=== PATIENT | male | born 1950 | race Two or more races ===

== ENCOUNTER 2018-12-08 12:40 | Inpatient (IN) | payer MEDICARE, MEDICAID ==
[2018-12-08] VITALS (8 sets, daily range): BP systolic 115–156; BP diastolic 77–97
[~2018-12-08] VITALS: Ht 165.1 cm; Wt 68.4 kg
[2018-12-08] MEDS ORDERED: HALOPERIDOL 5 MG TABLET PO PRN (13:15)
[2018-12-08] MEDS ORDERED: ZOLPIDEM TARTRATE 10 MG TABLET PO PRN (13:15)
[2018-12-08] MEDS ORDERED: PNEUMOCOCCAL VACCINE POLYVALENT 0.5 ML VIAL [PPSV23] IM ONE (14:00)
[2018-12-08] MEDS: LORazepam 2 MG TABLET PO PRN (20:43)
[2018-12-09] VITALS (11 sets, daily range): BP systolic 129–158; BP diastolic 82–117
[2018-12-09] MEDS: NICOTINE 14 MG/24 HOUR PATCH TD SCH (08:30)
[2018-12-09 08:41] LABS: BASOPHILS % (AUTO) 0.9 % (0.0-2.0); EOSINOPHILS % (AUTO) 1.9 % (1.0-6.0); HEMATOCRIT 44.3 % (41-53); HEMOGLOBIN 15.4 g/dL (13.5-17.5); LYMPHOCYTES # (AUTO) 0.8 K/uL (1.0-4.8); LYMPHOCYTES % (AUTO) 18.8 % (22.0-44.0); MEAN CORPUSCULAR HEMOGLOBIN 32.2 pg (26.0-34.0); MEAN CORPUSCULAR HGB CONC 34.7 G/dL (31.0-37.0); MEAN CORPUSCULAR VOLUME 93 fL (80-100); MONOCYTES # (AUTO) 0.7 K/uL (0.1-1.0); MONOCYTES % (AUTO) 15.6 % (2.0-9.0); NEUTROPHILS # (AUTO) 2.6 K/uL (1.8-7.7); NEUTROPHILS % (AUTO) 62.8 % (40.0-70.0); PLATELET COUNT (AUTO) 250 K/uL (150-450); RED BLOOD CELL COUNT(AUTO) 4.78 MIL/uL (4.50-5.90); RED CELL DISTRIBUTION WIDTH 17.7 % (11.5-14.5)
[2018-12-09 08:50] LABS: HEMOGLOBIN A1C 5.8 % (4.5-6.2)
[2018-12-09 09:13] LABS: ALANINE AMINOTRANSFERASE 59 U/L (12-78); ALBUMIN 3.2 g/dL (3.4-5.0); ALKALINE PHOSPHATASE 60 U/L (46-116); ANION GAP 7 mmol/L (8-16); ASPARTATE AMINOTRANSFERASE 69 U/L (15-37); BILIRUBIN,TOTAL 0.7 mg/dL (0.1-1.0); CALCIUM, TOTAL 8.5 mg/dL (8.8-10.5); CARBON DIOXIDE 29 mmol/L (22-29); CHLORIDE 103 mmol/L (98-107); CHOL/HDL RATIO 1.8 (4.2-7.3); CHOLESTEROL 222 mg/dL (131-200); CREATININE 0.85 mg/dL (0.60-1.30); FREE T4 (FREE THYROXINE) 0.78 ng/dL (0.76-1.46); GLOMERULAR FILTR. RATE CALC > 60 mL/min (>60); GLUCOSE,RANDOM 95 mg/dL (70-110); HDL CHOLESTEROL 124 mg/dL (40-60); LDL CHOL (CALC.) 89 mg/dL (0-130); POTASSIUM 4.1 mmol/L (3.5-5.1); SODIUM SERUM 139 mmol/L (136-145); THYROID STIMULATING HORMONE 1.22 uIU/mL (0.36-3.74); TOTAL PROTEIN, SERUM 6.6 g/dL (6.4-8.2); TRIGLYCERIDES 44 mg/dL (15-150); UREA NITROGEN, BLOOD 12 mg/dL (7-18)
[2018-12-09] MEDS: LORazepam 2 MG TABLET PO PRN (13:05)
[2018-12-09] MEDS: LISINOPRIL 10 MG TABLET PO SCH (14:05)
[2018-12-09] MEDS: HALOPERIDOL 2 MG TABLET PO SCH (21:08)
[2018-12-10 03:15] VITALS: BP 137/81
[2018-12-10] MEDS ORDERED: LOPERAMIDE HCL 2 MG CAPSULE PO PRN (07:30)
[2018-12-10] MEDS ORDERED: MAG HYDROX/AL HYDROX/SIMETH ES 30 ML SUSPENSION UDCUP PO PRN (07:30)
[2018-12-10] MEDS ORDERED: BENZOCAINE/MENTHOL LOZENGE MM PRN (07:30)
[2018-12-10] MEDS ORDERED: ONDANSETRON HCL 4 MG TABLET PO PRN (07:30)
[2018-12-10] MEDS ORDERED: IBUPROFEN 600 MG TABLET PO PRN (07:30)
[2018-12-10] MEDS ORDERED: MAGNESIUM HYDROXIDE SUSPENSION 30 ML UDCUP PO PRN (07:30)
[2018-12-10] MEDS ORDERED: ALBUTEROL SULFATE HFA 90 MCG/PUFF 8 GM INHALER IH PRN (07:30)
[2018-12-10] MEDS ORDERED: BACITRACIN 28.4 GM OINTMENT TP PRN (07:30)
[2018-12-10] MEDS ORDERED: PETROLATUM,WHITE 71 GM JELLY TP PRN (07:30)
[2018-12-10] MEDS ORDERED: CloNIDine HCL 0.1 MG TABLET PO PRN (07:30)
[2018-12-10] MEDS: OMEPRAZOLE 20 MG CAPSULE PO SCH (08:36)
[2018-12-10] MEDS: NICOTINE 14 MG/24 HOUR PATCH TD SCH (08:37)
[2018-12-10] MEDS: LISINOPRIL 10 MG TABLET PO SCH (08:37)
[2018-12-10] MEDS: DOCUSATE SODIUM 100 MG CAPSULE PO SCH (09:35)
[2018-12-10 10:38] VITALS: BP 128/88
[2018-12-10 16:09] VITALS: BP 137/86
[2018-12-10] MEDS: HALOPERIDOL 2 MG TABLET PO SCH (20:04)
[2018-12-11 00:17] VITALS: BP 113/72
[2018-12-11] MEDS: DOCUSATE SODIUM 100 MG CAPSULE PO SCH (08:04)
[2018-12-11] MEDS: NICOTINE 14 MG/24 HOUR PATCH TD SCH (08:04)
[2018-12-11] MEDS: OMEPRAZOLE 20 MG CAPSULE PO SCH (08:04)
[2018-12-11] MEDS: LISINOPRIL 10 MG TABLET PO SCH (08:04)
[2018-12-11 09:01] VITALS: BP 115/80
[2018-12-11 16:11] VITALS: BP 121/95
[2018-12-11] MEDS: HALOPERIDOL 2 MG TABLET PO SCH (20:12)
[2018-12-12 06:10] VITALS: BP 137/87
[2018-12-12 08:16] VITALS: BP 139/88
[2018-12-12] MEDS: DOCUSATE SODIUM 100 MG CAPSULE PO SCH (08:30)
[2018-12-12] MEDS: OMEPRAZOLE 20 MG CAPSULE PO SCH (08:30)
[2018-12-12] MEDS: LISINOPRIL 10 MG TABLET PO SCH (08:30)
[2018-12-12] MEDS: NICOTINE 14 MG/24 HOUR PATCH TD SCH (08:32)
[2018-12-12 16:14] VITALS: BP 140/90
[2018-12-12] MEDS: HALOPERIDOL 2 MG TABLET PO SCH (20:06)
[2018-12-13 00:22] VITALS: BP 140/100
[2018-12-13] MEDS: DOCUSATE SODIUM 100 MG CAPSULE PO SCH (08:11)
[2018-12-13] MEDS: OMEPRAZOLE 20 MG CAPSULE PO SCH (08:11)
[2018-12-13] MEDS: LISINOPRIL 10 MG TABLET PO SCH (08:11)
[2018-12-13] MEDS: NICOTINE 14 MG/24 HOUR PATCH TD SCH (08:11)
[2018-12-13] MEDS ORDERED: NICOTINE 14 MG/24 HOUR PATCH TD PRN (08:30)
[2018-12-13 09:15] VITALS: BP 140/89
[2018-12-13 16:06] VITALS: BP 140/83
[2018-12-13] MEDS: ACETAMINOPHEN 325 MG TABLET PO PRN (16:42)
[2018-12-13] MEDS: HALOPERIDOL 2 MG TABLET PO SCH (20:13)
[2018-12-14 00:42] VITALS: BP 138/90
[2018-12-14] MEDS: OMEPRAZOLE 20 MG CAPSULE PO SCH (08:28)
[2018-12-14] MEDS: LISINOPRIL 10 MG TABLET PO SCH (08:29)
[2018-12-14] MEDS: DOCUSATE SODIUM 100 MG CAPSULE PO SCH (08:29)
[2018-12-14 08:37] VITALS: BP 133/80
[2018-12-14 16:06] VITALS: BP 127/84
[2018-12-14] MEDS: HALOPERIDOL 2 MG TABLET PO SCH (20:31)
[2018-12-15 04:57] VITALS: BP 136/89
[2018-12-15 08:06] VITALS: BP 125/87
[2018-12-15] MEDS: OMEPRAZOLE 20 MG CAPSULE PO SCH (08:18)
[2018-12-15] MEDS: DOCUSATE SODIUM 100 MG CAPSULE PO SCH (08:18)
[2018-12-15] MEDS: LISINOPRIL 10 MG TABLET PO SCH (08:18)
[2018-12-15 16:15] VITALS: BP 142/84
[2018-12-15] MEDS: HALOPERIDOL 2 MG TABLET PO SCH (20:38)
[2018-12-16 05:16] VITALS: BP 103/60
[2018-12-16] MEDS: DOCUSATE SODIUM 100 MG CAPSULE PO SCH (08:05)
[2018-12-16] MEDS: LISINOPRIL 10 MG TABLET PO SCH (08:05)
[2018-12-16] MEDS: THIAMINE HCL 100 MG TABLET PO SCH (08:06)
[2018-12-16] MEDS: FOLIC ACID 1 MG TABLET PO SCH (08:06)
[2018-12-16] MEDS: MULTIVITAMINS WITH MINERALS, THERAPEUTIC TABLET PO SCH (08:06)
[2018-12-16] MEDS: OMEPRAZOLE 20 MG CAPSULE PO SCH (08:06)
[2018-12-16 08:11] VITALS: BP 136/90
[2018-12-16] MEDS ORDERED: MULTIVITAMINS WITH MINERALS, THERAPEUTIC TABLET PO SCH (09:00)
[2018-12-16] MEDS ORDERED: FOLIC ACID 1 MG TABLET PO SCH (09:00)
[2018-12-16 16:04] VITALS: BP 140/84
[2018-12-16] MEDS: HALOPERIDOL 2 MG TABLET PO SCH (20:08)
[2018-12-16 20:38] VITALS: BP 124/71
[2018-12-16] MEDS: ACETAMINOPHEN 325 MG TABLET PO PRN (20:38)
[2018-12-17 00:59] VITALS: BP 136/85
[2018-12-17] MEDS: MULTIVITAMINS WITH MINERALS, THERAPEUTIC TABLET PO SCH (06:39)
[2018-12-17] MEDS: DOCUSATE SODIUM 100 MG CAPSULE PO SCH (08:27)
[2018-12-17] MEDS: LISINOPRIL 10 MG TABLET PO SCH (08:28)
[2018-12-17] MEDS: OMEPRAZOLE 20 MG CAPSULE PO SCH (08:28)
[2018-12-17] MEDS: THIAMINE HCL 100 MG TABLET PO SCH (08:28)
[2018-12-17] MEDS: FOLIC ACID 1 MG TABLET PO SCH (08:28)
[2018-12-17 08:31] VITALS: BP 120/80
[2018-12-17 09:18] LABS: ALBUMIN 3.2 g/dL (3.4-5.0); BILIRUBIN,DIRECT 0.1 mg/dL (0.00-0.20); BILIRUBIN,TOTAL 0.4 mg/dL (0.1-1.0); TOTAL PROTEIN, SERUM 6.9 g/dL (6.4-8.2)
[2018-12-17] MEDS ORDERED: LACTULOSE 20 GM/30 ML SOLUTION UDCUP PO SCH ×2 (16:00→22:30)
[2018-12-17 18:01] VITALS: BP 139/98
[2018-12-17] MEDS: HALOPERIDOL 2 MG TABLET PO SCH (20:07)
[2018-12-18] MEDS: LACTULOSE 20 GM/30 ML SOLUTION UDCUP PO SCH ×3 (00:05→16:47)
[2018-12-18] MEDS: LORazepam 2 MG TABLET PO PRN (00:38)
[2018-12-18 00:39] VITALS: BP_SYST 126; BP_SYST 141; BP_DIAS 78; BP_DIAS 81
[2018-12-18] MEDS: MULTIVITAMINS WITH MINERALS, THERAPEUTIC TABLET PO SCH (06:39)
[2018-12-18] MEDS: FOLIC ACID 1 MG TABLET PO SCH (08:22)
[2018-12-18] MEDS: DOCUSATE SODIUM 100 MG CAPSULE PO SCH (08:22)
[2018-12-18] MEDS: OMEPRAZOLE 20 MG CAPSULE PO SCH (08:22)
[2018-12-18] MEDS: LISINOPRIL 10 MG TABLET PO SCH (08:22)
[2018-12-18] MEDS: THIAMINE HCL 100 MG TABLET PO SCH (08:22)
[2018-12-18 08:34] VITALS: BP 131/92
[2018-12-18] MEDS ORDERED: LACTULOSE 20 GM/30 ML SOLUTION UDCUP PO SCH (09:00)
[2018-12-18 16:10] VITALS: BP 140/94
[2018-12-18 20:19] VITALS: BP 182/110
[2018-12-18] MEDS: HALOPERIDOL 2 MG TABLET PO SCH (20:35)
[2018-12-18 21:13] VITALS: BP 151/98
[2018-12-18 22:10] VITALS: BP 128/84
[2018-12-19] MEDS: LACTULOSE 20 GM/30 ML SOLUTION UDCUP PO SCH ×2 (00:16→08:51)
[2018-12-19 04:26] VITALS: BP 126/80
[2018-12-19] MEDS: MULTIVITAMINS WITH MINERALS, THERAPEUTIC TABLET PO SCH (07:07)
[2018-12-19 08:27] VITALS: BP 140/95
[2018-12-19] MEDS: OMEPRAZOLE 20 MG CAPSULE PO SCH (08:51)
[2018-12-19] MEDS: THIAMINE HCL 100 MG TABLET PO SCH (08:51)
[2018-12-19] MEDS: FOLIC ACID 1 MG TABLET PO SCH (08:51)
[2018-12-19] MEDS: DOCUSATE SODIUM 100 MG CAPSULE PO SCH (08:51)
[2018-12-19] MEDS: LISINOPRIL 10 MG TABLET PO SCH (08:51)
[2018-12-19] MEDS ORDERED: OMEP20 PO (10:52)
[2018-12-19] MEDS ORDERED: HALO2 PO (10:52)
[2018-12-19] MEDS ORDERED: LISI-661 PO (10:52)
[2018-12-19] MEDS ORDERED: DSS100 PO (10:52)
== END 2018-12-19 16:44 | disposition home or self-care (01) | DRG 881 ==
LOC: B2X 13:11
PROVIDERS: ADMIT Psychiatry & Neurology Psychiatry; ATTEND Psychiatry & Neurology Psychiatry
DX: F32.9 Major depressive disorder, single episode, unspecified (principal); R45.851 Suicidal ideations; E78.00 Pure hypercholesterolemia, unspecified; F17.210 Nicotine dependence, cigarettes, uncomplicated; F22 Delusional disorders; F41.9 Anxiety disorder, unspecified; G47.00 Insomnia, unspecified; I10 Essential (primary) hypertension; K59.00 Constipation, unspecified; Z59.0 Homelessness
CPT/HCPCS: 80074; 83036; 84439; 84443; 90686; G0480

== ENCOUNTER 2019-04-14 13:50 | Inpatient (IN) | payer MEDICAID, MEDICARE ==
[~2019-04-14] VITALS: Ht 165.1 cm; Wt 65.8 kg
[~2019-04-14 13:50] MED LIST: DSS100 PO; HALO2 PO; LISI-661 PO; OMEP20 PO
[2019-04-14 14:17] VITALS: BP 136/93
[2019-04-14] MEDS ORDERED: ZOLPIDEM TARTRATE 10 MG TABLET PO PRN (14:30)
[2019-04-14] MEDS ORDERED: LOPERAMIDE HCL 2 MG CAPSULE PO PRN ×2 (14:30→19:00)
[2019-04-14] MEDS ORDERED: PROMETHAZINE HCL 25 MG TABLET PO PRN (14:30)
[2019-04-14] MEDS ORDERED: TUBERCULIN, PURIFIED PROTEIN DERIVATIVE 5 TU/0.1 ML SYRINGE ID ONE (14:30)
[2019-04-14] MEDS ORDERED: ACETAMINOPHEN 325 MG TABLET PO PRN ×2 (14:30→19:00)
[2019-04-14] MEDS ORDERED: LORazepam 2 MG TABLET PO PRN (14:30)
[2019-04-14] MEDS ORDERED: MAGNESIUM HYDROXIDE SUSPENSION 30 ML UDCUP PO PRN ×2 (14:30→19:00)
[2019-04-14] MEDS ORDERED: HydrOXYzine PAMOATE 50 MG CAPSULE PO PRN (14:30)
[2019-04-14] MEDS ORDERED: MAG HYDROX/AL HYDROX/SIMETH ES 30 ML SUSPENSION UDCUP PO PRN ×2 (14:30→19:00)
[2019-04-14] MEDS ORDERED: GuaiFENesin/D-METHORPHAN [SUGAR-FREE] 200-20MG/10 ML SYRUP UDCUP PO PRN (14:30)
[2019-04-14] MEDS ORDERED: HALOPERIDOL 5 MG TABLET PO PRN (14:30)
[2019-04-14] MEDS ORDERED: DIAZEPAM 10 MG TABLET PO PRN (14:45)
[2019-04-14] MEDS ORDERED: CYANOCOBALAMIN 1,000 MCG/ML VIAL IM ONE (14:45)
[2019-04-14] MEDS ORDERED: LORazepam 2 MG/ML VIAL ONE (15:09)
[2019-04-14] MEDS ORDERED: DiphenhydrAMINE HCL 50 MG/ML VIAL ONE (15:09)
[2019-04-14] MEDS ORDERED: HALOPERIDOL LACTATE 5 MG/ML VIAL ONE (15:09)
[2019-04-14] MEDS ORDERED: DiphenhydrAMINE HCL 50 MG/ML VIAL IM ONE (15:15)
[2019-04-14] MEDS ORDERED: LORazepam 2 MG/ML VIAL IM ONE (15:15)
[2019-04-14] MEDS ORDERED: HALOPERIDOL LACTATE 5 MG/ML VIAL IM ONE (15:15)
[2019-04-14 15:17] VITALS: BP 147/103
[2019-04-14 16:17] VITALS: BP 138/95
[2019-04-14] MEDS: HALOPERIDOL 2 MG TABLET PO SCH (17:00)
[2019-04-14] MEDS: THIAMINE HCL 100 MG TABLET PO SCH (17:00)
[2019-04-14] MEDS ORDERED: PNEUMOCOCCAL VACCINE POLYVALENT 0.5 ML VIAL [PPSV23] IM ONE (19:00)
[2019-04-14] MEDS ORDERED: ONDANSETRON HCL 4 MG TABLET PO PRN (19:00)
[2019-04-14] MEDS ORDERED: PETROLATUM,WHITE 28 GM JELLY TP PRN (19:00)
[2019-04-14] MEDS ORDERED: IBUPROFEN 600 MG TABLET PO PRN (19:00)
[2019-04-14] MEDS ORDERED: BACITRACIN 28.4 GM OINTMENT TP PRN (19:00)
[2019-04-14] MEDS ORDERED: BENZOCAINE/MENTHOL LOZENGE MM PRN (19:00)
[2019-04-14] MEDS ORDERED: ALBUTEROL SULFATE HFA 90 MCG/PUFF 8 GM INHALER IH PRN (19:00)
[2019-04-14 22:17] VITALS: BP 142/96
[2019-04-15] VITALS (9 sets, daily range): BP systolic 122–149; BP diastolic 70–115
[2019-04-15] MEDS: CloNIDine HCL 0.1 MG TABLET PO PRN ×2 (04:24→10:48)
[2019-04-15] MEDS ORDERED: DIAZEPAM 10 MG TABLET PO PRN (07:00)
[2019-04-15 07:40] LABS: BASOPHILS % (AUTO) 0.7 % (0.0-2.0); EOSINOPHILS % (AUTO) 0.9 % (1.0-6.0); HEMATOCRIT 45.1 % (41-53); HEMOGLOBIN 15.1 g/dL (13.5-17.5); LYMPHOCYTES # (AUTO) 0.6 K/uL (1.0-4.8); LYMPHOCYTES % (AUTO) 15.7 % (22.0-44.0); MEAN CORPUSCULAR HEMOGLOBIN 31.6 pg (26.0-34.0); MEAN CORPUSCULAR HGB CONC 33.4 G/dL (31.0-37.0); MEAN CORPUSCULAR VOLUME 95 fL (80-100); MONOCYTES # (AUTO) 0.4 K/uL (0.1-1.0); MONOCYTES % (AUTO) 9.6 % (2.0-9.0); NEUTROPHILS # (AUTO) 2.7 K/uL (1.8-7.7); NEUTROPHILS % (AUTO) 73.1 % (40.0-70.0); PLATELET COUNT (AUTO) 174 K/uL (150-450); RED BLOOD CELL COUNT(AUTO) 4.76 MIL/uL (4.50-5.90); RED CELL DISTRIBUTION WIDTH 16.4 % (11.5-14.5)
[2019-04-15 08:07] LABS: HEMOGLOBIN A1C 5.9 % (4.5-6.2)
[2019-04-15 08:09] LABS: ALANINE AMINOTRANSFERASE 59 U/L (12-78); ALBUMIN 3.3 g/dL (3.4-5.0); ALKALINE PHOSPHATASE 67 U/L (46-116); ANION GAP 9 mmol/L (8-16); ASPARTATE AMINOTRANSFERASE 79 U/L (15-37); BILIRUBIN,TOTAL 0.6 mg/dL (0.1-1.0); CALCIUM, TOTAL 9.3 mg/dL (8.8-10.5); CARBON DIOXIDE 27 mmol/L (22-29); CHLORIDE 102 mmol/L (98-107); CHOL/HDL RATIO 2.1 (4.2-7.3); CHOLESTEROL 251 mg/dL (131-200); FREE T4 (FREE THYROXINE) 0.81 ng/dL (0.76-1.46); GLOMERULAR FILTR. RATE CALC > 60 mL/min (>60); GLUCOSE,RANDOM 132 mg/dL (70-110); HDL CHOLESTEROL 121 mg/dL (40-60); LDL CHOL (CALC.) 112 mg/dL (0-130); SODIUM SERUM 138 mmol/L (136-145); THYROID STIMULATING HORMONE 1.15 uIU/mL (0.36-3.74); TOTAL PROTEIN, SERUM 7.2 g/dL (6.4-8.2); TRIGLYCERIDES 91 mg/dL (15-150); UREA NITROGEN, BLOOD 13 mg/dL (7-18)
[2019-04-15] MEDS: DOCUSATE SODIUM 100 MG CAPSULE PO SCH (08:22)
[2019-04-15] MEDS: THIAMINE HCL 100 MG TABLET PO SCH ×2 (08:22→16:38)
[2019-04-15] MEDS: FLUoxetine HCL 20 MG CAPSULE PO SCH (08:23)
[2019-04-15] MEDS: FOLIC ACID 1 MG TABLET PO SCH (08:23)
[2019-04-15] MEDS: OMEPRAZOLE 20 MG CAPSULE PO SCH (08:23)
[2019-04-15] MEDS: HALOPERIDOL 2 MG TABLET PO SCH ×2 (08:23→16:38)
[2019-04-15] MEDS: MULTIVITAMINS WITH MINERALS, THERAPEUTIC TABLET PO SCH (08:23)
[2019-04-15] MEDS: DIAZEPAM 10 MG TABLET PO SCH ×4 (08:23→20:29)
[2019-04-15] MEDS: LISINOPRIL 10 MG TABLET PO SCH (12:17)
[2019-04-16 01:17] VITALS: BP 141/105
[2019-04-16 06:38] VITALS: BP 144/94
[2019-04-16 06:59] VITALS: BP 144/94
[2019-04-16 08:01] VITALS: BP 138/87
[2019-04-16] MEDS: DOCUSATE SODIUM 100 MG CAPSULE PO SCH (08:41)
[2019-04-16] MEDS: HALOPERIDOL 2 MG TABLET PO SCH ×2 (08:41→16:37)
[2019-04-16] MEDS: FOLIC ACID 1 MG TABLET PO SCH (08:41)
[2019-04-16] MEDS: MULTIVITAMINS WITH MINERALS, THERAPEUTIC TABLET PO SCH (08:41)
[2019-04-16] MEDS: FLUoxetine HCL 20 MG CAPSULE PO SCH (08:41)
[2019-04-16] MEDS: OMEPRAZOLE 20 MG CAPSULE PO SCH (08:41)
[2019-04-16] MEDS: THIAMINE HCL 100 MG TABLET PO SCH ×2 (08:41→16:37)
[2019-04-16] MEDS: DIAZEPAM 10 MG TABLET PO SCH ×4 (08:41→20:41)
[2019-04-16] MEDS: LISINOPRIL 10 MG TABLET PO SCH (08:41)
[2019-04-16 16:02] VITALS: BP 135/90
[2019-04-17 01:43] VITALS: BP 140/82
[2019-04-17] MEDS ORDERED: DIAZEPAM 5 MG TABLET PO PRN (07:00)
[2019-04-17 08:10] VITALS: BP 122/90
[2019-04-17] MEDS: MULTIVITAMINS WITH MINERALS, THERAPEUTIC TABLET PO SCH (08:15)
[2019-04-17] MEDS: LISINOPRIL 10 MG TABLET PO SCH (08:15)
[2019-04-17] MEDS: DOCUSATE SODIUM 100 MG CAPSULE PO SCH (08:15)
[2019-04-17] MEDS: HALOPERIDOL 2 MG TABLET PO SCH ×2 (08:16→16:04)
[2019-04-17] MEDS: THIAMINE HCL 100 MG TABLET PO SCH ×2 (08:16→16:03)
[2019-04-17] MEDS: OMEPRAZOLE 20 MG CAPSULE PO SCH (08:16)
[2019-04-17] MEDS: FLUoxetine HCL 20 MG CAPSULE PO SCH (08:16)
[2019-04-17] MEDS: FOLIC ACID 1 MG TABLET PO SCH (08:16)
[2019-04-17] MEDS: DIAZEPAM 5 MG TABLET PO SCH ×4 (08:16→20:44)
[2019-04-17 16:00] VITALS: BP 136/103
[2019-04-17 18:40] VITALS: BP 152/105
[2019-04-17] MEDS: LISINOPRIL 20 MG TABLET PO SCH (18:56)
[2019-04-17 20:00] VITALS: BP 140/97
[2019-04-18 05:16] VITALS: BP 131/92
[2019-04-18 05:18] VITALS: BP 131/92
[2019-04-18] MEDS ORDERED: DIAZEPAM 5 MG TABLET PO PRN (07:00)
[2019-04-18] MEDS: FLUoxetine HCL 20 MG CAPSULE PO SCH (08:52)
[2019-04-18] MEDS: MULTIVITAMINS WITH MINERALS, THERAPEUTIC TABLET PO SCH (08:52)
[2019-04-18] MEDS: LISINOPRIL 20 MG TABLET PO SCH (08:52)
[2019-04-18] MEDS: OMEPRAZOLE 20 MG CAPSULE PO SCH (08:52)
[2019-04-18] MEDS: FOLIC ACID 1 MG TABLET PO SCH (08:52)
[2019-04-18] MEDS: THIAMINE HCL 100 MG TABLET PO SCH ×2 (08:52→17:35)
[2019-04-18] MEDS: DOCUSATE SODIUM 100 MG CAPSULE PO SCH (08:52)
[2019-04-18] MEDS: HALOPERIDOL 2 MG TABLET PO SCH ×2 (08:52→17:35)
[2019-04-18 16:00] VITALS: BP 131/97
[2019-04-19 02:30] VITALS: BP 142/98
[2019-04-19 08:09] VITALS: BP 120/79
[2019-04-19] MEDS: MULTIVITAMINS WITH MINERALS, THERAPEUTIC TABLET PO SCH (08:50)
[2019-04-19] MEDS: FOLIC ACID 1 MG TABLET PO SCH (08:50)
[2019-04-19] MEDS: HALOPERIDOL 2 MG TABLET PO SCH ×2 (08:50→16:33)
[2019-04-19] MEDS: FLUoxetine HCL 20 MG CAPSULE PO SCH (08:50)
[2019-04-19] MEDS: OMEPRAZOLE 20 MG CAPSULE PO SCH (08:50)
[2019-04-19] MEDS: DOCUSATE SODIUM 100 MG CAPSULE PO SCH (08:50)
[2019-04-19] MEDS: LISINOPRIL 20 MG TABLET PO SCH (08:50)
[2019-04-19] MEDS: THIAMINE HCL 100 MG TABLET PO SCH ×2 (08:58→16:33)
[2019-04-19 16:10] VITALS: BP 129/88
[2019-04-19 16:11] VITALS: BP 129/88
[2019-04-19] MEDS: HALOPERIDOL 10 MG TABLET PO SCH (20:18)
[2019-04-19] MEDS: DiphenhydrAMINE HCL 25 MG CAPSULE PO SCH (20:18)
[2019-04-19] MEDS: SIMVASTATIN 10 MG TABLET PO SCH (20:34)
[2019-04-20 00:12] VITALS: BP 134/98
[2019-04-20 00:57] VITALS: BP 134/98
[2019-04-20 08:11] VITALS: BP 114/77
[2019-04-20 08:12] VITALS: BP 114/77
[2019-04-20] MEDS: HALOPERIDOL 5 MG TABLET PO SCH (08:26)
[2019-04-20] MEDS: OMEGA-3/DHA/EPA/FISH OIL 1,000 MG CAPSULE PO SCH (08:26)
[2019-04-20] MEDS: LISINOPRIL 20 MG TABLET PO SCH (08:27)
[2019-04-20] MEDS: FLUoxetine HCL 20 MG CAPSULE PO SCH (08:27)
[2019-04-20] MEDS: FOLIC ACID 1 MG TABLET PO SCH (08:27)
[2019-04-20] MEDS: DOCUSATE SODIUM 100 MG CAPSULE PO SCH (08:27)
[2019-04-20] MEDS: MULTIVITAMINS WITH MINERALS, THERAPEUTIC TABLET PO SCH (08:27)
[2019-04-20] MEDS: THIAMINE HCL 100 MG TABLET PO SCH ×2 (08:27→16:43)
[2019-04-20] MEDS: OMEPRAZOLE 20 MG CAPSULE PO SCH (08:27)
[2019-04-20 16:00] VITALS: BP 120/89
[2019-04-20] MEDS: SIMVASTATIN 10 MG TABLET PO SCH (20:59)
[2019-04-20] MEDS: HALOPERIDOL 10 MG TABLET PO SCH (20:59)
[2019-04-20] MEDS: DiphenhydrAMINE HCL 25 MG CAPSULE PO SCH (20:59)
[2019-04-21 04:24] VITALS: BP 130/87
[2019-04-21 08:33] VITALS: BP 127/76
[2019-04-21] MEDS: HALOPERIDOL 5 MG TABLET PO SCH (09:07)
[2019-04-21] MEDS: THIAMINE HCL 100 MG TABLET PO SCH ×2 (09:07→16:18)
[2019-04-21] MEDS: DOCUSATE SODIUM 100 MG CAPSULE PO SCH (09:07)
[2019-04-21] MEDS: LISINOPRIL 20 MG TABLET PO SCH (09:07)
[2019-04-21] MEDS: OMEPRAZOLE 20 MG CAPSULE PO SCH (09:07)
[2019-04-21] MEDS: OMEGA-3/DHA/EPA/FISH OIL 1,000 MG CAPSULE PO SCH (09:07)
[2019-04-21] MEDS: FLUoxetine HCL 20 MG CAPSULE PO SCH (09:07)
[2019-04-21] MEDS: MULTIVITAMINS WITH MINERALS, THERAPEUTIC TABLET PO SCH (09:07)
[2019-04-21] MEDS: FOLIC ACID 1 MG TABLET PO SCH (09:07)
[2019-04-21 16:00] VITALS: BP 123/85
[2019-04-21] MEDS: HALOPERIDOL 10 MG TABLET PO SCH (20:45)
[2019-04-21] MEDS: DiphenhydrAMINE HCL 25 MG CAPSULE PO SCH (20:45)
[2019-04-21] MEDS: SIMVASTATIN 10 MG TABLET PO SCH (20:45)
[2019-04-22 06:27] VITALS: BP 128/72
[2019-04-22 08:17] VITALS: BP 127/84
[2019-04-22] MEDS: HALOPERIDOL 5 MG TABLET PO SCH (08:36)
[2019-04-22] MEDS: LISINOPRIL 20 MG TABLET PO SCH (08:36)
[2019-04-22] MEDS: OMEGA-3/DHA/EPA/FISH OIL 1,000 MG CAPSULE PO SCH (08:36)
[2019-04-22] MEDS: FOLIC ACID 1 MG TABLET PO SCH (08:36)
[2019-04-22] MEDS: OMEPRAZOLE 20 MG CAPSULE PO SCH (08:36)
[2019-04-22] MEDS: MULTIVITAMINS WITH MINERALS, THERAPEUTIC TABLET PO SCH (08:36)
[2019-04-22] MEDS: FLUoxetine HCL 20 MG CAPSULE PO SCH (08:36)
[2019-04-22] MEDS: DOCUSATE SODIUM 100 MG CAPSULE PO SCH (08:36)
[2019-04-22] MEDS: THIAMINE HCL 100 MG TABLET PO SCH ×3 (08:36→17:03)
[2019-04-22] MEDS ORDERED: HALOPERIDOL DECANOATE 50 MG/ML VIAL IM SCH (09:00)
[2019-04-22] MEDS ORDERED: HALO50VI4 IM ×2 (15:42→16:11)
[2019-04-22] MEDS ORDERED: HALO10 PO ×2 (15:42→16:11)
[2019-04-22] MEDS ORDERED: DIPH25 PO ×2 (15:42→16:11)
[2019-04-22] MEDS ORDERED: OMEG-135 PO ×2 (15:42→16:11)
[2019-04-22] MEDS ORDERED: HALO5TAB2 PO ×2 (15:42→16:23)
[2019-04-22] MEDS ORDERED: FLUO-191 PO ×2 (15:42→16:11)
[2019-04-22] MEDS ORDERED: NALT50TA PO (15:42)
[2019-04-22] MEDS ORDERED: LISI-662 PO (16:11)
[2019-04-22] MEDS ORDERED: OMEP20 PO (16:11)
[2019-04-22] MEDS ORDERED: SIMV-259 PO (16:11)
[2019-04-22] MEDS ORDERED: FOLI1 PO (16:11)
[2019-04-22 16:13] VITALS: BP 128/90
[2019-04-22] MEDS ORDERED: NALT50TA6 PO (16:15)
[2019-04-22] MEDS ORDERED: DSS100 PO (16:21)
[2019-04-23] MEDS ORDERED: NALTREXONE HCL 50 MG TABLET PO SCH (09:00)
== END 2019-04-22 19:30 | disposition home or self-care (01) | DRG 885 ==
LOC: B3A 15:35 → B2S 04-16 21:33 → B3A 04-17 16:48
PROVIDERS: ADMIT Psychiatry & Neurology Psychiatry; ATTEND Psychiatry & Neurology Psychiatry
DX: F25.0 Schizoaffective disorder, bipolar type (principal); R45.851 Suicidal ideations; Z28.21 Immunization not carried out because of patient refusal; E78.00 Pure hypercholesterolemia, unspecified; F17.200 Nicotine dependence, unspecified, uncomplicated; F60.0 Paranoid personality disorder; G47.00 Insomnia, unspecified; I10 Essential (primary) hypertension; K59.00 Constipation, unspecified; R76.11 Nonspecific reaction to tuberculin skin test without active tuberculosis; Z91.14 Patient's other noncompliance with medication regimen
CPT/HCPCS: 83036; 84439; 84443; 86592; J1200; J1630; J1631; J2060; J3420

== ENCOUNTER 2021-10-09 20:00 | Emergency (ER) | payer MEDICARE, OTHER ==
[~2021-10-09] VITALS: Ht 165.1 cm; Wt 70.5 kg
[~2021-10-09 20:00] MED LIST changes: +DIPH25 PO; +FLUO-191 PO; +FOLI-130 PO; +HALO10 PO; -HALO2 PO; +HALO50VI4 IM; +HALO5TAB2 PO; -LISI-661 PO; +LISI-894 PO; +NALT50TA PO; +NALT50TA6 PO; +OMEG-135 PO; +SIMV-259 PO
[2021-10-10] MEDS ORDERED: ONDANSETRON HCL 4 MG TABLET PO ONE (03:30)
[2021-10-10 03:35] VITALS: BP 122/82
== END 2021-10-10 04:15 | disposition home or self-care (01) ==
LOC: EMS 20:10
DX: F10.229 Alcohol dependence with intoxication, unspecified (principal); R41.82 Altered mental status, unspecified; R45.1 Restlessness and agitation; F17.210 Nicotine dependence, cigarettes, uncomplicated; F20.9 Schizophrenia, unspecified; Z79.899 Other long term (current) drug therapy; Y90.9 Presence of alcohol in blood, level not specified
CPT/HCPCS: 99283; Q0162

== ENCOUNTER 2022-10-04 08:58 | Emergency (ER) | payer MEDICARE, OTHER ==
[~2022-10-04] VITALS: Ht 172.7 cm; Wt 81.8 kg
[~2022-10-04 08:58] MED LIST changes: +FLUO-177 PO; -FLUO-191 PO; -HALO10 PO; +HALO10TA21 PO; +HALO50VI29 IM; -HALO50VI4 IM
[2022-10-04 09:08] VITALS: BP 132/78
[2022-10-04] MEDS ORDERED: LIDOCAINE 5% TRANSDERMAL PATCH TD ONE (12:00)
[2022-10-04] MEDS ORDERED: IBUPROFEN 600 MG TABLET PO ONE (12:00)
[2022-10-04] MEDS ORDERED: LIDO700A15 TP (12:46)
== END 2022-10-04 13:48 | disposition home or self-care (01) ==
LOC: EMS 09:03
DX: M54.50 Low back pain, unspecified (principal); F31.9 Bipolar disorder, unspecified; F20.9 Schizophrenia, unspecified; F41.9 Anxiety disorder, unspecified; F10.20 Alcohol dependence, uncomplicated; F17.210 Nicotine dependence, cigarettes, uncomplicated; I10 Essential (primary) hypertension; J44.9 Chronic obstructive pulmonary disease, unspecified
CPT/HCPCS: 99283

== ENCOUNTER 2023-10-19 12:22 | Emergency (ER) | payer MEDICARE, OTHER ==
[~2023-10-19] VITALS: Ht 165.1 cm; Wt 80.0 kg
[~2023-10-19 12:22] MED LIST changes: +DIPH-1243 PO; -DIPH25 PO; +LIDO700A15 TP; +NALT50TA33 PO; -NALT50TA6 PO
[2023-10-19 12:46] VITALS: TEMP 99
[2023-10-19] MEDS ORDERED: CARB1TAB36 PO (15:10)
[2023-10-19] MEDS ORDERED: ROSU10TA72 PO (15:10)
[2023-10-19] MEDS ORDERED: ASPI-1450 PO (15:10)
[2023-10-19] MEDS ORDERED: OLAN5TAB52 PO (15:10)
[2023-10-19] MEDS ORDERED: LISI-894 PO (15:10)
[2023-10-19] MEDS ORDERED: TAMS0.4C94 PO (15:10)
[2023-10-19] MEDS ORDERED: MAGN400T57 PO (15:10)
[2023-10-19] MEDS ORDERED: CLON0.2T PO (15:10)
[2023-10-19] MEDS ORDERED: METO25 PO (15:10)
[2023-10-19] MEDS ORDERED: GABA-1181 PO (15:10)
[2023-10-19] MEDS ORDERED: EZET10TA57 PO (15:10)
[2023-10-19] MEDS ORDERED: LISINOPRIL 10 MG TABLET PO ONE (15:15)
[2023-10-19] MEDS ORDERED: CloNIDine HCL 0.2 MG TABLET PO ONE (15:15)
[2023-10-19 15:59] LABS: BASOPHILS % (AUTO) 0.2 % (0.0-2.0); EOSINOPHILS % (AUTO) 0.2 % (1.0-6.0); HEMATOCRIT 44.4 % (41-53); HEMOGLOBIN 15.2 g/dL (13.5-17.5); LYMPHOCYTES # (AUTO) 2.5 K/uL (1.0-4.8); LYMPHOCYTES % (AUTO) 19.3 % (22.0-44.0); MEAN CORPUSCULAR HEMOGLOBIN 30.6 pg (26.0-34.0); MEAN CORPUSCULAR HGB CONC 34.2 G/dL (31.0-37.0); MEAN CORPUSCULAR VOLUME 89 fL (80-100); MONOCYTES # (AUTO) 0.9 K/uL (0.1-1.0); MONOCYTES % (AUTO) 6.7 % (2.0-9.0); NEUTROPHILS # (AUTO) 9.5 K/uL (1.8-7.7); NEUTROPHILS % (AUTO) 73.6 % (40.0-70.0); PLATELET COUNT (AUTO) 326 K/uL (150-450); RED BLOOD CELL COUNT(AUTO) 4.97 MIL/uL (4.50-5.90); RED CELL DISTRIBUTION WIDTH 14.8 % (11.5-14.5); WHITE BLOOD COUNT (AUTO) 12.9 K/uL (4.5-11.0)
[2023-10-19 16:04] LABS: ANION GAP 11 mmol/L (8-16); CALCIUM, TOTAL 10.5 mg/dL (8.8-10.5); CARBON DIOXIDE 27 mmol/L (22-29); CHLORIDE 102 mmol/L (98-107); CREATININE 0.95 mg/dL (0.60-1.30); GLOMERULAR FILTR. RATE CALC > 60 mL/min (>60); GLUCOSE,RANDOM 149 mg/dL (70-110); POTASSIUM 4.5 mmol/L (3.5-5.1); SODIUM SERUM 140 mmol/L (136-145); UREA NITROGEN, BLOOD 24 mg/dL (7-18)
[2023-10-19 16:10] LABS: ALANINE AMINOTRANSFERASE 24 U/L (12-78); ALBUMIN 3.9 g/dL (3.4-5.0); ALKALINE PHOSPHATASE 64 U/L (46-116); ASPARTATE AMINOTRANSFERASE 21 U/L (15-37); BILIRUBIN,TOTAL 0.4 mg/dL (0.1-1.0); LIPASE 78 U/L (16-77); TOTAL PROTEIN, SERUM 8.2 g/dL (6.4-8.2)
[2023-10-19 16:12] LABS: TROPONIN I-HIGH SENSITIVITY 19 ng/L (<76)
[2023-10-19] MEDS ORDERED: METOPROLOL SUCCINATE 25 MG ER TABLET PO ONE (16:30)
[2023-10-19 18:13] VITALS: BP 129/93; PULSE 88; RESP 16
== END 2023-10-19 19:06 ==
LOC: EMS 12:25
DX: I10 Essential (primary) hypertension (principal); F10.20 Alcohol dependence, uncomplicated; F41.9 Anxiety disorder, unspecified; F31.9 Bipolar disorder, unspecified; J44.9 Chronic obstructive pulmonary disease, unspecified; F20.9 Schizophrenia, unspecified; F17.210 Nicotine dependence, cigarettes, uncomplicated; Z98.890 Other specified postprocedural states
CPT/HCPCS: 80053; 83690; 84484; 85025; 93005; 99285